=== PATIENT | male | born 2000 | race Caucasian/White ===

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

== ENCOUNTER 2020-04-19 22:25 | Emergency (ER) | payer OTHER, SELFPAY ==
[2020-04-19 22:26] VITALS: RESP 16; TEMP 36.6
[2020-04-19 22:37] VITALS: BP 123/56; PULSE 91; RESP 26
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
[2020-04-19] MEDS: SODIUM CHLORIDE 0.9% IV 1,000 ML 999 ML IV CONT (23:45)
[2020-04-19 23:53] LABS: Basophils Percent Auto 0.4 % (0.2-1.2); Eosinophils Percent Auto 0.5 % (0-4.4); Hematocrit 47.4 % (42.0-52.0); Hemoglobin 16.2 g/dL (14.0-18.0); Immature Granulocyte Absolute 0.03 K/mm3 (0.00-0.031); Immature Granulocyte Percent A 0.4 % (0-0.5); Lymphocytes Absolute Auto 1.24 K/mm3 (0.9-3.2); Lymphocytes Percent Auto 16.6 % (18.3-44.2); Mean Corpuscular HGB Conc 34.2 g/dl (32-36); Mean Corpuscular Hemoglobin 29.8 pg (26-34); Mean Corpuscular Volume 87.3 fl (80-100); Mean Platelet Volume 10.2 fl (7.4-10.4); Monocytes Absolute Auto 0.4 K/mm3 (0.1-0.6); Monocytes Percent Auto 5.6 % (2.6-8.5); Neutrophils Absolute Auto 5.7 K/mm3 (1.3-6.7); Neutrophils Percent Auto 76.5 % (45.5-73.1); Platelet Count Result 205 k/mm3 (150-375); Red Blood Count 5.43 M/mm3 (4.6-6.20); Red Cell Distribution Width 12.6 % (11.5-14.5); White Blood Count 7.5 K/mm3 (4.5-10.0)
--- NOTE | 2020-04-20 00:02 | PC.NURSE ---
Patient's mother Ludy calls to get update on her son.
[2020-04-20 00:04] LABS: Anion Gap 12 mmol/L (8-16); Blood Urea Nitrogen 13 mg/dL (8-21); Calcium 8.7 mg/dL (8.9-10.7); Carbon Dioxide 28 mmol/L (22-30); Chloride 103 mmol/L (98-107); Estimated CRCL calculation 105 ml/min; Estimated Glomerular Filt Rate > 60; Glucose 119 mg/dL (75-110); Potassium 3.9 mmol/L (3.4-5.0); Sodium 143 mmol/L (134-143)
[2020-04-20 00:15] LABS: Ethanol 316 mg/dL (<10)
--- NOTE | 2020-04-20 02:04 | PC.NURSE ---
Patient uncooperative with repeat VS.
[2020-04-20 06:17] VITALS: BP 115/51; PULSE 96; RESP 18; O2SAT 100
--- NOTE | 2020-04-20 06:21 | PC.NURSE ---
Patient awake and conversant. Patient informed if he can find a ride, he can go home. Patient on his phone trying to get a ride home.
--- NOTE | 2020-04-20 06:24 | PC.NURSE ---
Patient's mother calls to inform this nurse that either she or her will come to pick patient up shortly. ERP notified.
== END 2020-04-20 07:15 | disposition home or self-care (01) ==
PROVIDERS: Emergency Provider Emergency Medicine; PCP Pediatrics
DX: F10.129 Alcohol abuse with intoxication, unspecified (principal); Y90.8 Blood alcohol level of 240 mg/100 ml or more
CPT/HCPCS: 36415; 80048; 80307; 85025; 96360; 99283; J7030

== ENCOUNTER → 2021-02-25 09:58 | Outpatient (CLI) | payer OTHER, SELFPAY ==
[2021-02-25 21:02] LABS: SARS-CoV-2 RNA PCR Positive
== END ==
PROVIDERS: PCP Family Medicine; Visit Provider Family Medicine
DX: U07.1 COVID-19 (principal); R09.81 Nasal congestion
CPT/HCPCS: C9803; U0003; U0005